=== PATIENT | female | born 1970 | race Caucasian/White ===

== ENCOUNTER 2024-01-16 05:44 | Day surgery (SDC) | payer OTHER ==
[2024-01-04 17:00] VITALS: BP 114/80
[~2024-01-16] VITALS: Ht 172.7 cm; Wt 74.5 kg
[~2024-01-16 05:44] MED LIST: LACTATED RINGER'S 1,000 ML IV SCH; VENTOLIN HFA18 GM
[2024-01-16 06:04] VITALS: BP 122/86
[2024-01-16] MEDS ORDERED: fentaNYL citrate 100 MCG/2 ML VIAL ONE (06:04)
[2024-01-16] MEDS ORDERED: KETOROLAC TROMETHAMINE 30 MG/ML VIAL ONE (06:04)
[2024-01-16] MEDS ORDERED: propofoL 200 MG/20 ML VIAL ONE (06:04)
[2024-01-16] MEDS ORDERED: ondansetron HCL 4 MG/2 ML VIAL ONE (06:04)
[2024-01-16] MEDS ORDERED: LACTATED RINGER'S 1,000 ML IV ONE (06:04)
[2024-01-16] MEDS ORDERED: DEXAMETHASONE SOD PHOS 4 MG/ML VIAL ONE (06:04)
[2024-01-16] MEDS ORDERED: MIDAZOLAM HCL 2 MG/2 ML VIAL ONE (06:04)
[2024-01-16] MEDS ORDERED: FAMOTIDINE 20 MG/ 2 ML VIAL ONE (06:04)
[2024-01-16] MEDS ORDERED: KETAMINE in NS 50 MG/5 ML SYR ONE (06:04)
[2024-01-16] MEDS ORDERED: METOCLOPRAMIDE HCL 10 MG/2 ML SDV ONE (06:04)
[2024-01-16] MEDS ORDERED: BUPIVACAINE 0.75% IN DEXTROSE 2 ML AMP ONE (06:08)
[2024-01-16] MEDS ORDERED: LIDOCAINE HCL 2% 5 ML SDV ONE (06:08)
[2024-01-16] MEDS ORDERED: GABAPENTIN 300 MG CAP ONE (06:40)
[2024-01-16] MEDS ORDERED: ACETAMINOPHEN 500 MG TAB PO ONE (06:45)
[2024-01-16] MEDS ORDERED: GABAPENTIN 300 MG CAP PO ONE ×2 (06:45→12:30)
[2024-01-16] MEDS ORDERED: ondansetron HCL 4 MG TAB PO SCH (07:00)
[2024-01-16] MEDS ORDERED: GABAPENTIN 600 MG TAB PO SCH (07:00)
[2024-01-16] MEDS ORDERED: OXYCODONE HCL 5 MG TAB PO SCH (07:00)
[2024-01-16] MEDS ORDERED: LIDOCAINE HCL 1% 5 ML SDV INJ ONE (07:00)
[2024-01-16] MEDS ORDERED: IBLOOD GLUCOSE TEST STRIP 1 EA TEST VI PRN ×2 (07:00→09:00)
[2024-01-16] MEDS ORDERED: PANTOPRAZOLE SODIUM 40 MG TABEC PO SCH (07:00)
[2024-01-16] MEDS ORDERED: CEFAZOLIN SODIUM 2 GM/20 ML SYR IV SCH ×2 (07:00→15:00)
[2024-01-16] MEDS ORDERED: INTRA-ARTICULAR ANALGESIC INJECTION XX SCH (07:00)
[2024-01-16] MEDS ORDERED: TRANEXAMIC ACID 2,000 MG in SODIUM CHLORIDE 0.9% 100 ML IV SCH (07:00)
[2024-01-16] MEDS ORDERED: ATROPINE SULFATE 1 MG/ML VIAL ONE (07:19)
[2024-01-16] MEDS ORDERED: TRANEXAMIC ACID 1,000 MG/10 ML AMP ONE (07:23)
--- NOTE | 2024-01-16 07:30 | NUR ---
PT GONE FOR PROCEDURE. PROVIDED PRAYER.
[2024-01-16] MEDS ORDERED: SEVOFLURANE 250 ML BTL ONE (07:53)
[2024-01-16] MEDS ORDERED: SCOPOLAMINE 1 MG/3 DAYS PATCH 1 EACH TDSY ONE (08:38)
[2024-01-16] MEDS ORDERED: NALOXONE HCL 0.4 MG SYR IV PRN (09:00)
[2024-01-16] MEDS ORDERED: ondansetron HCL 4 MG/2 ML VIAL IV PRN (09:00)
[2024-01-16] MEDS ORDERED: fentaNYL citrate 50 MCG/ML SDV IV PRN (09:00)
[2024-01-16] MEDS ORDERED: METOCLOPRAMIDE HCL 10 MG/2 ML SDV IV PRN (09:00)
[2024-01-16] MEDS ORDERED: MORPHINE SULFATE 10 MG/ML VIAL IV PRN (09:00)
[2024-01-16] MEDS ORDERED: droPERidol 5 MG/2 ML VIAL IV PRN (09:00)
[2024-01-16] MEDS ORDERED: PROCHLORPERAZINE EDISYLATE 10 MG/2 ML VIAL IV PRN (09:00)
[2024-01-16] MEDS ORDERED: CEFUROXIME250 MG PO (09:10)
[2024-01-16] MEDS ORDERED: TRAMADOL HCL50 MG PO (09:10)
[2024-01-16] MEDS ORDERED: ACETAMINOPHEN500 MG PO (09:11)
[2024-01-16] MEDS ORDERED: SENNA LAX8.6 MG PO (09:11)
[2024-01-16] MEDS ORDERED: DICLOFENAC SODI75 MG PO (09:11)
[2024-01-16] MEDS ORDERED: ASPIRIN EC325 MG PO (09:12)
--- NOTE | 2024-01-16 09:12 | NUR ---
01/16/24 0912 Radha Lanza 0851 PT TO PACU ORAL AIRWAY IN PLACE O2 VIA MASK FOGGING NOTED IN MASK.
[2024-01-16] MEDS ORDERED: KETOROLAC TROMETHAMINE 30 MG/ML VIAL IV PRN (09:15)
--- NOTE | 2024-01-16 09:40 | NUR ---
PT ARRIVES TO FROM PACU VIA STRETCHER. PT IS DROWSY BUT ASKING APPROPRIATE QUESTIONS AT THIS TIME. PT REPORTS PAIN 4 OR 5/10 AND STATES PAIN IS TOLERABLE AT THIS TIME. PT SPINAL MID THIGH LEVEL, PT ABLE TO SLIGHTLY MOVE BOTH FEET AT THIS TIME. PT REPORTS NO NAUSEA, SCOPALAMINE PATCH IN PLACE BEHIND LFT EAR, PT AND PT EDUCATED ABOUT PATCH, VERBAL UNDERSTANDING RECEIVED. PT ON RA, O2 >90% AT THIS TIME VIA PULSE OX, RESPIRATIONS EVEN AND UNLABORED, NO SIGNS OF DISTRESS. REPORT RECEIVED FROM FANNY REESE, AT BEDSIDE. ICE WATER, APPLESAUCE, AND CRACKERS PROVIDED. PT TOLERATING WITHOUT DIFFICULTY SWALLOWING. PT STATES NO FURTHER NEEDS OR QUESTIONS AT THIS TIME, CALL LIGHT WITHIN REACH. FAMILY AT BEDSIDE.
[2024-01-16 09:47] VITALS: BP 118/75
[2024-01-16] MEDS ORDERED: TRAMADOL HCL 50 MG TAB PO SCH (10:00)
--- NOTE | 2024-01-16 10:20 | NUR ---
IN PT ROOM FOR PAIN ASSESSMENT AND NAUSEA ASSESSMENT POST EATING. PT REPORTS NO DEVELOPMENT OF NAUSEA. PT STATES PAIN HAS INCREASED TO 7/10 AND REQUESTS PRN PAIN MED AT THIS TIME. PT STATES SHE HAS TAKEN THIS MED BEFORE AND IT WORKS WELL FOR HER. PRN TRAMADOL GIVEN (SEE EMAR). PT REPORTS NO FURTHER QUESTIONS OR NEEDS AT THIS TIME. FRESH ICE WATER PROVIDED. REMAINS AT BEDSIDE. CALL LIGHT WITHIN REACH.
--- NOTE | 2024-01-16 10:50 | NUR ---
IN PT ROOM FOR VS AND ADMIN OF TXA (SEE EMAR). PT STATES NO CHANGE IN PAIN YET AT THIS TIME. NO ACUTE CHANGES FROM PREVIOUS SURGICAL ASSESSMENT. PT HAS TOLERATED ALL ORALS WITHOUT ANY ONSET OF NAUSEA. PT SPINAL IS AT LAWRENCE LEVEL AND SHE IS ABLE TO MOVE FEET BILAT. PT CONTINUES TO REPORT NUMBNESS. LUNCH ORDER PLACED. PT REMAINS AT BEDSIDE. CALL LIGHT WITHIN REACH, PT STATES NO FURTHER NEEDS OR QUESTIONS AT THIS TIME.
[2024-01-16 10:51] VITALS: BP 119/77
[2024-01-16] MEDS ORDERED: TRANEXAMIC ACID 2,000 MG in SODIUM CHLORIDE 0.9% 100 ML IV ONE (11:00)
--- NOTE | 2024-01-16 11:14 | NUR ---
LUNCH HAS ARRIVED, PT HOB ELEVATED TO 40 DEGREES.
--- NOTE | 2024-01-16 11:50 | NUR ---
IN PT ROOM D/T REPORT OF NEED TO URINE VOID. PT TO BEDSIDE COMMODE VIA 2 RN ASSIST, PT STATES SENSATION INTACT, BUT HAVING DIFFICULTY WITH MOVEMENT ON RT LEG. PT UNABLE TO URINE VOID AT THIS TIME. PT STATES SHE IS UNABLE TO FEEL SENSATION IN SALAS REGION W/WIPING WELL. PT BACK TO BED, CHUCKS IN PLACE, W/2RN ASSIST. PT REPORTS PAIN BECOMES SIGNIFICANT WITH MOVEMENT AND GOES TO 10/10. PT STATES PRN PAIN MED HAS NOT WORKED. CALL LIGHT WITHIN REACH, AT BEDSIDE, PT STATES NO FURTHER NEEDS AT THIS TIME.
--- NOTE | 2024-01-16 12:15 | NUR ---
VO RECEIVED FROM ISAAK NUÑEZ FOR 0.5 OF IV DILAUDID, AND 30 MINUTES AFTER, 300 MG OF ORAL GABAPENTIN. VERBAL READ BACK. PHARMACY CALLED.
[2024-01-16 12:30] VITALS: BP 114/69
[2024-01-16] MEDS ORDERED: HYDROmorphone HCL 1 MG/ML SYR IV ONE (12:30)
--- NOTE | 2024-01-16 12:30 | NUR ---
IN PT ROOM FOR IV ADMIN OF IV DILAUDID, VS TAKEN, NO ACUTE CHANGES FROM PREVIOUS ASSESSMENT. CALL LIGHT WITHIN REACH, FAMILY AT BEDSIDE.
[2024-01-16] MEDS ORDERED: TAPENTADOL HYDROCHLORIDE PO ONE (12:45)
--- NOTE | 2024-01-16 12:45 | NUR ---
VO RECEIVED FROM ISAAK JACK TO DC ORAL GABAPENTIN 300 MG AND ORDER PLACED FOR 75 MG OF NUCYNTA. PT AGREEABLE WITH PLAN OF CARE AT THIS TIME. PHARMACY CALLED.
--- NOTE | 2024-01-16 13:00 | NUR ---
ORAL MEDICATION RECEIVED AND ADMINISTERED. PT STATES PAIN RATING POST DILAUDID IS AT 2/10 AT THIS TIME. PT ENCOURAGED TO CONTINUE FLEXING MUSCLES IN BLE. SPINAL IS RESOLVED AND SENSATION INTACT ANTERIOR AND POSTERIOR, BUT PT UNABLE TO LIFT LFT LEG AT THIS TIME. PT ABLE TO WIGGLE FEET, FLEX POSTERIOR MUSCLE, AND PERFORM FOOT PUMPS WITHOUT DIFFICULTY. CALL LIGHT WITHIN REACH, PT STATES NO FURTHER NEEDS OR QUESTIONS AT THSI TIME. FAMILY AT BEDSIDE. WATER REFILLED.
--- NOTE | 2024-01-16 14:00 | NUR ---
IN PT ROOM FOR PAIN ASSESSMENT. PT STATES PAIN REMAINS TOLERABLE AND WOULD LIKE TO ATTEMPT PHYSICAL THERAPY. THIS RN ASSISTS PT TO BEDSIDE COMMODE VIA STAND/PIVOT X3 AT PT REQUEST FOR MOVEMENT, PT TOLERATED MOVEMENTS WELL, GAIT STEADY AND LITTLE TO NO ASSIST REQUIRED TO STAND/PIVOT. PT REPORTS PAIN IS TOLERABLE WITH MOVEMENT. PT STATES STILL NO URGE TO URINE VOID, PT ENCOURAGED TO DRINK MORE WATER. PT STATES NO DISCOMFORT, BLADDER IS NOT PALPABLE AT THIS TIME. CALL LIGHT WITHIN REACH, PT STATES NO FURTHER NEEDS OR QUESTIONS AT THIS TIME. PT MOTHER IN ROOM.
[2024-01-16 14:32] VITALS: BP 112/53
--- NOTE | 2024-01-16 14:37 | NUR ---
IN PT ROOM FOR VS AND PAIN ASSESSMENT. PT STATES PAIN IS TOLERABLE AT 3/10 AND SHE FEELS MORE MUSCLE CONTROL AT THIS TIME. PT CONTINUES TO DRINK WATER TO ASSIST WITH SENSATION TO URINE VOID. VS TAKEN. FAMILY AT BEDSIDE. CALL LIGHT WITHIN REACH.
--- NOTE | 2024-01-16 14:42 | NUR ---
HO Rudd/PHYSICAL THERAPY IN ROOM WITH PT AT THIS TIME.
[2024-01-16] MEDS ORDERED: ACETAMINOPHEN 500 MG TAB PO SCH (15:00)
--- NOTE | 2024-01-16 15:30 | NUR ---
PT BACK FROM PHYSICAL THERAPY. HO W/PHYSICAL THERAPY IN ROOM ASSISTING PT W/GETTING DRESSED, PER [place], PT HAS PASSED. MAIA FERNÁNDEZ CALLED TO UPDATE ON PT CONDITION AND MEETING OF REQUIREMENTS. VO FOR DC RECEIVED. PT INSTRUCTED TO ONLY REMOVE POSTERIOR DRESSING AND APPLY MEDIHONEY IN A COUPLE DAYS, LEAVE SURGICAL DRESSING C/D/I. MAIA FERNÁNDEZ TO SEND ORDER FOR NUCYNTA TO PT PHARMACY FOR PICKUP, PT STATES VERBAL UNDERSTANDING TO THESE INSTRUCTIONS.
--- NOTE | 2024-01-16 15:55 | NUR ---
IN PT ROOM FOR ADMIN OF TYLENOL AND ANCEF. DC EDUCATION PROVIDED, PT STATES VERBAL UNDERSTANDING TO DC EDUCATION AT THIS TIME, PRESENT. IV DC'ED. PT OFF OF UNIT VIA WC TO PASSENGER SIDE OF VEHICLE. ALL BELONGINGS IN PT POSSESSION AT THIS TIME. PT STATES NO FURTHER QUESTIONS OR NEEDS.
[2024-01-16 16:10] VITALS: BP 97/66
[2024-01-16] MEDS ORDERED: SENNOSIDES 1 TAB PO SCH (21:00)
[2024-01-17] MEDS ORDERED: cefuroxime axetiL 250 MG TAB PO SCH (09:00)
--- NOTE | 2024-01-18 08:34 | OR ---
[facility] [address] [facility] [place], [place] [address] Signed DATE OF OPERATION: 01/16/2024 SURGEON: Akash Lanza MD PREOPERATIVE DIAGNOSIS: Severe degenerative joint disease, left hip. POSTOPERATIVE DIAGNOSIS: Severe degenerative joint disease, left hip. PROCEDURE PERFORMED: Left total hip arthroplasty. MANAGED CARE DIRECTOR: Ngozi Shook PA-C. Ngozi was present and critical for all portions of procedure. ANESTHESIA: Spinal. BLOOD LOSS: 200 mL. IMPLANTS: Secur-Fit Advanced size 8 stem, 54 mm cup with two screws. BRIEF HISTORY: Renata is a 53-year-old female with progressive worsening of severe osteoarthritis of the left hip. Risks, benefits, and alternatives of surgery were discussed with her and she elected to proceed. PROCEDURE IN DETAIL: Once consent was obtained, she was taken to the operating room. After adequate anesthesia, she was placed in the right lateral decubitus position. Axillary roll was placed. All downside pressure points were well-padded. The left hip was then prepped and draped in a standard sterile fashion. The hip was approached through standard 5 inch incision centered over the greater trochanter, carried through skin and subcutaneous tissue. The IT band was divided longitudinally. The vastus lateralis was then divided from the tip of the trochanter along the anterior margin of the femur distally. It was then taken anteriorly and superiorly through the capsule and gluteus Electronically Signed By: AKASH LANZA MD 01/18/24 0834 PATIENT NAME: RENATA ALY OPERATIVE REPORT DATE OF : 74 REPORT #: [id number] PHYSICIAN: AKASH LANZA MD PCP: LAURA ESPARZA MD REPORT IS CONFIDENTIAL AND NOT TO BE RELEASED WITHOUT AUTHORIZATION [facility] [address] [place], [place] [address] Signed medius. This was then elevated as a full-thickness sleeve off the femoral neck and proximal femur around to the level of the lesser trochanter. Her capsule was noted to be extensively calcified and was very difficult to cut through. We were able to release everything. However, we were unable to dislocate her hip at all. I made the femoral neck cut one fingerbreadth above the lesser trochanter and made another neck cut 1 cm above that. Napkin ring was removed, however, was still unable to get the femoral head out. Ultimately using a chisel, we carefully divided the femoral head into halves and removed piecemeal. There were extensive soft tissue connections inferoposteriorly. The periacetabular soft tissue was removed with some difficulty. The pulvinar was removed and bleeders were cauterized. We were then able to ream with a 52 and a 54 in 20 degrees of anteversion and 40 degrees of abduction. The bone was quite good. We got good bleeding metaphyseal bone and impacted the acetabulum in the same manner. This was quite stable. We went ahead and put two screws due to the patient's very active lifestyle. The two screws were placed in the posterior superior quadrant. The acetabular liner was then impacted until it was walked into position. Once this was completed, attention was turned to the proximal femur which was opened using the gustavoie cutter followed by the Charnley awl. The distal femur was then reamed up to an 8, which matched the preoperative templating. She was then sequentially broached up to an 8. The 8 found to be well fitting. It was left in position and the high offset neck and +0 head were put on it and the hip was reduced. Leg lengths found to be good. She had excellent stability to 100 degrees of flexion, 30 of external and 40 of internal rotation. The hip was then dislocated. The trials were removed. The stem was then impacted carefully until it was at the same level as the broach. The +0 ceramic head was then impacted. The hip was reduced, again taken through range of motion as noted above and found to be stable. There was no impingement. The wound was copiously irrigated with a bottle of Surgiphor followed by normal saline. The periarticular soft tissues were injected with 100 mL ropivacaine and Toradol mixture. The capsule was then closed with #2 FiberWire. Vastus and IT band layers were closed independently using #2 Stratafix. The subcutaneous tissue was closed with 0 Stratafix. The skin was closed with 3-0 Stratafix. The skin was sealed with LiquiBand and Steri-Strips and dressed with an Acticoat-7 dressing. She was awakened, taken to the recovery room in satisfactory condition. All sponge, needle, and instrument counts were correct. Akash Lanza MD BA/MODL /[id number] Electronically Signed By: AKASH LANZA MD 01/18/24 0834 PATIENT NAME: RENATA ALY OPERATIVE REPORT DATE OF : 74 REPORT #: [id number] PHYSICIAN: AKASH LANZA MD PCP: LAURA ESPARZA MD REPORT IS CONFIDENTIAL AND NOT TO BE RELEASED WITHOUT AUTHORIZATION [facility] [address] [place] [address] Signed Copies: ~ Electronically Signed By: AKASH LANZA MD 01/18/24 0834 PATIENT NAME: RENATA ALY OPERATIVE REPORT DATE OF : 74 REPORT #: [id number] PHYSICIAN: AKASH LANZA MD PCP: LAURA ESPARZA MD REPORT IS CONFIDENTIAL AND NOT TO BE RELEASED WITHOUT AUTHORIZATION
== END 2024-01-16 16:00 | disposition home or self-care (01) ==
LOC: DS 05:44
PROVIDERS: ATTEND Specialist
PROC: 0SRB0JZ Replacement of Left Hip Joint with Synthetic Substitute, Open Approach (ICD-10-PCS; principal; 2024-01-16 07:00)
DX: M16.12 Unilateral primary osteoarthritis, left hip (principal); J45.909 Unspecified asthma, uncomplicated
CPT/HCPCS: 01214; 72170; 97161; A9270; C1713; C1776; J0461; J0690; J1100; J1171; J1885; J2003; J2250; J2405; J2704; J2765; J3010; J3490; J7121